=== PATIENT | male | born 1955 | race Two or more races ===

== ENCOUNTER → 2018-03-22 | Outpatient (CLI) | payer BC ==
[~2018-03-22] MED LIST: REGADENOSON 0.4 MG/5 ML DISP.SYRIN. IV ONE
--- NOTE | 2018-03-22 09:32 | PCVCIMAG ---
APPROVED REPORT Study performed: 03/22/2018 08:29:21 EXAM: Comprehensive 2D, Doppler, and color-flow Echocardiogram Patient Location: Echo lab Room #: 2Status: routine BSA: 2.11 HR: 75 bpmBP: 136/84 mmHg Rhythm: NSR Other Information Study Quality: Good Risk Factors: Cardiac Risk Factors: DM Indications Diabetes CAD Chest Pain Elevated Cor Ca+ score 2D Dimensions IVSd: 8.45 (7-11mm)LVOT Diam: 19.55 (18-24mm) LVDd: 44.61 mm PWd: 9.99 (7-11mm)Ascending Ao: 30.00 (22-36mm) LVDs: 30.66 (25-40mm) Left Atrium: 38.87 (27-40mm) Aortic Root: 23.31 mm LV Single Plane 4CH: 55.26 % LV Single Plane 2CH: 72.60 % Biplane EF: 64.9 % Volumes Left Atrial Volume (Systole) Single Plane 4CH: 44.35 mLSingle Plane 2CH: 35.23 mL Biplane LA Volume: 40.00 mLLA ESV Index: 19.00 mL/m2 Aortic Valve AoV Peak Deshaun.: 1.43 m/s AO Peak Gr.: 8.21 mmHgLVOT Max P.59 mmHg LVOT Max V: 0.95 m/s FERMÍN Vmax: 1.98 cm2 Mitral Valve E/A Ratio: 0.9 MV Decel. Time: 134.23 ms MV E Max Deshaun.: 0.77 m/s MV A Deshaun.: 0.82 m/s IVRT: 89.97 ms TDI E/Lateral E': 7.00E/Medial E': 15.40 Medial E' Deshaun.: 0.05 m/s Lateral E' Deshaun.: 0.11 m/s Pulmonary Valve PV Peak Deshaun.: 0.95 m/sPV Peak Gr.: 3.62 mmHg Pulmonary Vein P Vein S: 0.80 m/sP Vein A: 0.77 m/s P Vein D: 0.39 m/sP Vein A Dur.: 107.3 msec P Vein S/D Ratio: 2.05 Tricuspid Valve TR Peak Deshaun.: 2.43 m/s TR Peak Gr.: 23.70 mmHg TV Vmax: 0.68 m/sPA Pressure: 31.00 mmHg Left Ventricle The left ventricle is normal size. There is normal LV segmental wall motion. There is normal left ventricular wall thickness. Left ventricular systolic function is normal. The left ventricular ejection fraction is within the normal range. LVEF is 65%. The left ventricular diastolic function is normal. Right Ventricle The right ventricle is normal size. The right ventricular systolic function is normal. Atria The left atrium size is normal. The right atrium size is normal. Aortic Valve The aortic valve is normal in structure. No aortic regurgitation is present. There is no aortic valvular stenosis. Mitral Valve The mitral valve is normal in structure. There is no mitral valve regurgitation noted. No evidence of mitral valve stenosis. Tricuspid Valve The tricuspid valve is normal in structure. Trace to mild tricuspid regurgitation with a PA pressure of 31 mmHg Borderline pulmonary hypertension.. Pulmonic Valve The pulmonary valve is normal in structure. There is no pulmonic valvular regurgitation. Great Vessels The aortic root is normal in size. The ascending aorta is normal in size. Aortic arch is normal in caliber. IVC is normal in size and collapses >50% with inspiration. Pericardium There is no pericardial effusion. There is no pleural effusion. <Conclusion> The left ventricle is normal size. LVEF is 65%. The aortic valve is normal in structure. The mitral valve is normal in structure. The tricuspid valve is normal in structure. Trace to mild tricuspid regurgitation with a PA pressure of 31 mmHg Borderline pulmonary hypertension.. The pulmonary valve is normal in structure. There is no pulmonic valvular regurgitation. There is no pericardial effusion. There is no pleural effusion.
--- NOTE | 2018-03-22 14:51 | PCVCIMAG ---
APPROVED REPORT Imaging Protocol: Rest Tc-99m/Stress Tc-99m 1 day Study performed: 03/22/2018 10:09:09 Indication: Chest pain, Dyspnea, High Ca Score Patient Location: Out-Patient Stress Nurse: Babita Crowe RN, Taylor Agarwal RN NH Tech:Codi AURA CarlosMT Ht: 5 ft 11 in Wt: 200 lbs BSA: 2.11 m2 HR: 80 bpm BP: 162/77 mmHg BMI: 27.8 Medical History Medical History: HTN, Hyperlipidemia, Diabetes Medications: Atorvastatin, Meloxicam, Metformin Allergies: PCN Cardiac Risk Factors: Age Pretest Chest Pain Characteristics: No chest pain Exercise History: Indeterminate Resting Data Rest SPECT myocardial perfusion imaging was performed in supine position 45 minutes following the intravenous injection of 10.4 mCi of Tc-99m Sestamibi. Time of rest injection: 919 Date: 03/22/2018 Administration Route: IV Administration Site: Right AC Pharmacologic Stress Pharmacologic stress test was performed by injecting Regadenoson 0.4 mg IV push over 10-15 seconds immediately followed by the intravenous injection of 34.9 mCi of Tc-99m Sestamibi. Time of stress injection: 1045 Date: 03/22/2018 Administration Route: IV Administration Site: Right AC Gated Stress SPECT was performed 45 minutes after stress injection. The images were gated to evaluate regional wall motion and calculate left ventricular ejection fraction. Stress Test Details Stress Test: Pharmacologic stress was paired with low level exercise. Reason for pharmacologic stress test: hip issues. HRMax Heart Rate (APMHR): 157 bpm Resting HR: 80 bpmTarget HR (85% APMHR): 133 bpm Max HR Achieved: 127 bpm % of APMHR: 80 Recovery HR: 101 bpm BP Resting BP: 162/77 mmHg Max BP: 162/82 mmHg Recovery BP: 152/77 mmHg ECG Resting ECG: Sinus Rhythm Stress ECG: Sinus Tachycardia Recovery ECG: Sinus Tachycardia Clinical Reason for Termination: Completed protocol Stress Symptoms: None Exercise duration: 4 min 00 sec Exercise capacity: 1.6 METs Stress ECG Conclusion 1. Adequate response to intravenous Lexiscan 2. Inadequate heart rate for ECG diagnosis Perfusion There is a large area of severely reduced uptake in the entire segment of the inferior wall which is seen on the stress images as well as the resting images. This area thickens and moves normally and is most consistent with attenuation artifact. Wall Motion Normal left ventricular wall motion. Nuclear Conclusion ECG Findings: non-diagnostic Clinical Findings: negative for ischemia Nuclear Findings: negative for ischemia Exercise Capacity: not assessed Left Ventricular Function: normal 1. Low risk study Interpreted by: Carmelina Cueto MD Electronically Approved: 03/22/2018 14:49:41 <Conclusion> 1. Adequate response to intravenous Lexiscan 2. Inadequate heart rate for ECG diagnosis
== END | disposition home or self-care (01) ==
LOC: PCVCIMAG 08:16
PROVIDERS: ATTEND Internal Medicine
DX: R07.9 Chest pain, unspecified (principal); R94.31 Abnormal electrocardiogram [ECG] [EKG]; I25.10 Atherosclerotic heart disease of native coronary artery without angina pectoris; E11.9 Type 2 diabetes mellitus without complications; R93.1 Abnormal findings on diagnostic imaging of heart and coronary circulation; Z87.898 Personal history of other specified conditions
CPT/HCPCS: 78452; 93017; 93306; A9500; J2785